=== PATIENT | female | born 1950 | race Caucasian/White ===

== ENCOUNTER → 2017-08-08 | Day surgery (SDC) | payer OTHER, MEDICAID, MEDICARE ==
[~2017-08-08] MED LIST: IODIXANOL LOCM 100 ML BTL; LIDOCAINE 1% (MDV) 20 ML INJ; SOD CHLORIDE 0.9% 500 ML
== END | disposition home or self-care (01) ==
LOC: SDS 16:17
DX: I26.99 Other pulmonary embolism without acute cor pulmonale (principal); Z53.9 Procedure and treatment not carried out, unspecified reason; E11.9 Type 2 diabetes mellitus without complications; I10 Essential (primary) hypertension; E03.9 Hypothyroidism, unspecified; G82.20 Paraplegia, unspecified; Z85.3 Personal history of malignant neoplasm of breast

== ENCOUNTER 2017-08-09 18:05 | Day surgery (SDC) | payer OTHER | END 2017-08-09 18:06 | disposition short-term general hospital (02) | LOC: CCL 18:05 | DX: I26.99 Other pulmonary embolism without acute cor pulmonale (principal); D69.6 Thrombocytopenia, unspecified; E03.9 Hypothyroidism, unspecified; E11.9 Type 2 diabetes mellitus without complications; I10 Essential (primary) hypertension | CPT/HCPCS: 37619 ==